=== PATIENT | female | born 1940 | race African-American/Black ===

== ENCOUNTER 2016-12-31 16:38 | Inpatient (IN) | payer OTHER ==
[~2016-12-31] VITALS: Ht 157.5 cm; Wt 71.2 kg
[2016-12-31 19:55] LABS: BASOPHILS % 1.4 % (0.0-2.0); EOSINOPHILS % 11.3 % (0.0-5.0); HEMATOCRIT. 36.5 % (36.0-48.0); HEMOGLOBIN. 12.1 g/dL (12.0-16.0); LYMPHOCYTES % 39.6 % (20.0-50.0); MEAN CORPUSCULAR HEMOGLOBIN 31.5 pg (28.0-32.0); MEAN CORPUSCULAR VOLUME 95.4 fL (81.0-99.0); MEAN PLATELET VOLUME 9.4 fl (7.4-10.4); MONOCYTES % 9.4 % (2.0-8.0); NEUTROPHILS % 38.3 % (40.0-76.0); PLATELET 178 x1000/uL (130-400); RED BLOOD CELL COUNT 3.83 mill/uL (4.2-5.4); RED CELL DISTRIBUTION WIDTH 15.1 % (11.6-14.6)
[2016-12-31 20:01] LABS: INR 1.2; PROTHROMBIN TIME 12.7 sec (9.4-11.6)
[2016-12-31 20:07] LABS: CARBON DIOXIDE 28 mEq/L (21-32); CHLORIDE 97 mEq/L (98-107)
[2016-12-31 20:09] LABS: TROPONIN I 0.04 ng/mL (0.00-0.04)
[2016-12-31] MEDS ORDERED: FUROSEMIDE 40MG/4ML VIAL IVP ONE (20:15)
[2016-12-31] MEDS ORDERED: ASPIRIN 325MG TABLET PO ONE (20:15)
[2016-12-31 23:30] VITALS: BP 141/88
[2017-01-01 00:09] VITALS: BP 141/88
[2017-01-01] MEDS ORDERED: ACETAMINOPHEN 325MG TABLET PO PRN (00:45)
[2017-01-01] MEDS ORDERED: ONDANSETRON HCL 4MG/2ML VIAL IV PRN (00:45)
[2017-01-01] MEDS ORDERED: HYDROCODONE/ACETAMINOPHEN 5/325MG TABLET PO PRN (00:45)
[2017-01-01] MEDS ORDERED: CLONIDINE 0.1MG TABLET PO PRN (00:45)
[2017-01-01 04:00] VITALS: BP 123/79
[2017-01-01 07:01] LABS: CREATINE KINASE MB FRACTION 3.5 ng/mL (0.5-3.6); TROPONIN I 0.04 ng/mL (0.00-0.04)
[2017-01-01 08:00] VITALS: BP 132/79
[2017-01-01] MEDS: FUROSEMIDE 40MG/4ML VIAL IV SCH (08:35)
[2017-01-01] MEDS: ASPIRIN 81MG EC TABLET PO SCH (08:35)
[2017-01-01] MEDS: POTASSIUM CHLORIDE 20MEQ TABLET SR PO SCH (08:36)
[2017-01-01] MEDS: ENOXAPARIN 40MG/0.4ML SYR SUBCUT SCH (08:37)
[2017-01-01 12:00] VITALS: BP 129/74
[2017-01-01] MEDS ORDERED: AMLODIPINE 5MG TABLET PO SCH (15:00)
[2017-01-01 15:44] LABS: CREATINE KINASE MB FRACTION 3.8 ng/mL (0.5-3.6); TROPONIN I 0.04 ng/mL (0.00-0.04)
[2017-01-01 15:49] LABS: T4 FREE 0.12 ng/dL (0.76-1.46)
[2017-01-01 16:00] VITALS: BP 123/70
[2017-01-01 20:00] VITALS: BP 128/81
[2017-01-01] MEDS: LEVOTHYROXINE SODIUM 100 MCG/ VIAL IV SCH (22:51)
[2017-01-02] VITALS: BP 111/69
[2017-01-02 04:00] VITALS: BP 122/74
[2017-01-02 06:47] LABS: CARBON DIOXIDE 34 mEq/L (21-32); CHLORIDE 94 mEq/L (98-107); TROPONIN I 0.04 ng/mL (0.00-0.04)
[2017-01-02 07:10] LABS: BASOPHILS % 1.4 % (0.0-2.0); EOSINOPHILS % 11.2 % (0.0-5.0); HEMATOCRIT. 33.4 % (36.0-48.0); HEMOGLOBIN. 11.1 g/dL (12.0-16.0); LYMPHOCYTES % 37.4 % (20.0-50.0); MEAN CORPUSCULAR HEMOGLOBIN 31.6 pg (28.0-32.0); MEAN CORPUSCULAR VOLUME 94.5 fL (81.0-99.0); MEAN PLATELET VOLUME 8.6 fl (7.4-10.4); MONOCYTES % 12.8 % (2.0-8.0); NEUTROPHILS % 37.2 % (40.0-76.0); PLATELET 168 x1000/uL (130-400); RED BLOOD CELL COUNT 3.53 mill/uL (4.2-5.4); RED CELL DISTRIBUTION WIDTH 15.1 % (11.6-14.6)
[2017-01-02 08:00] VITALS: BP 134/60
[2017-01-02] MEDS ORDERED: AMLODIPINE 5MG TABLET PO SCH (09:00)
[2017-01-02] MEDS: ENOXAPARIN 40MG/0.4ML SYR SUBCUT SCH (09:02)
[2017-01-02] MEDS: POTASSIUM CHLORIDE 20MEQ TABLET SR PO SCH (09:02)
[2017-01-02] MEDS: ASPIRIN 81MG EC TABLET PO SCH (09:02)
[2017-01-02] MEDS: FUROSEMIDE 40MG/4ML VIAL IV SCH (09:04)
[2017-01-02] MEDS ORDERED: POTASSIUM CHLORIDE 20MEQ TABLET SR PO SCH (10:15)
[2017-01-02 12:00] VITALS: BP 125/68
[2017-01-02] MEDS: LEVOTHYROXINE SODIUM 100 MCG/ VIAL IV SCH (15:01)
[2017-01-02 16:00] VITALS: BP 132/74
[2017-01-02 16:45] VITALS: BP 132/74
== END 2017-01-02 17:20 | disposition home or self-care (01) | DRG 291 ==
LOC: ER 19:04 → 5WST 20:49 → OBSVTOIN 20:49 → INTOOBSV 20:49 → ENRESERV 21:13
PROVIDERS: ADMIT Internal Medicine; ATTEND Internal Medicine
DX: I11.0 Hypertensive heart disease with heart failure (principal); J18.9 Pneumonia, unspecified organism; I69.351 Hemiplegia and hemiparesis following cerebral infarction affecting right dominant side; E11.9 Type 2 diabetes mellitus without complications; E87.6 Hypokalemia; I44.0 Atrioventricular block, first degree; E03.9 Hypothyroidism, unspecified; E78.00 Pure hypercholesterolemia, unspecified; J45.909 Unspecified asthma, uncomplicated; I50.21 Acute systolic (congestive) heart failure; Z79.82 Long term (current) use of aspirin; Z79.84 Long term (current) use of oral hypoglycemic drugs; Z87.891 Personal history of nicotine dependence; Z90.49 Acquired absence of other specified parts of digestive tract; Z88.0 Allergy status to penicillin; Z91.013 Allergy to seafood; Z90.711 Acquired absence of uterus with remaining cervical stump
CPT/HCPCS: 36415; 71010; 80048; 80053; 82533; 82550; 82553; 83880; 84439; 84443; 84484; 85025; 85610; 93005; 93306; 93970; 96374; 99291; J1650; J1940; J3490